=== PATIENT | female | born 1990 | race Caucasian/White ===

== ENCOUNTER 2017-01-25 09:05 | Emergency (ER) | payer BC, MEDICAID ==
[2017-01-25] MEDS ORDERED: Ibuprofen TAB* 600 MG PO ONE (09:55)
[2017-01-25] MEDS ORDERED: Acetaminophen TAB* 325 MG PO ONE (09:55)
--- NOTE | 2017-01-25 09:58 | ED ---
Influenza-Like Illness - HPI Summary HPI Summary: fever, myalgias and cough since yesterday. - History of Current Complaint Chief Complaint: UCRespiratory Time Seen by Provider: 01/25/17 09:49 Hx Obtained From: Patient Onset/Duration: Gradual Onset Severity: Moderate Associated Signs & Symptoms: Fever, Myalgia, Cough, Nasal Congestion Related Hx: Smoking Exposure - Allergy/Home Medications Allergies/Adverse Reactions: Allergies Allergy/AdvReac Type Severity Reaction Status Date / Time No Known Allergies Allergy Verified 01/25/17 09:24 Home Medications: Home Medications Implamon Bc Inplant 01/25/17 [History] PMH/Surg Hx/FS Hx/Imm Hx Previously Healthy: Yes Cardiovascular History: Denies: Hx Aneurysm - Surgical History Surgery Procedure, Year, and Place: DENTAL EXTRACTIONS Infectious Disease History: No Infectious Disease History: Denies: Traveled Outside the in Last 30 Days - Social History Alcohol Use: None Substance Use Type: Reports: None Smoking Status (MU): Light Every Day Tobacco Smoker Type: Cigarettes Amount Used/How Often: 1/2 PPD Have You Smoked in the Last Year: Yes Review of Systems All Other Systems Reviewed And Are Negative: Yes Physical Exam Triage Information Reviewed: Yes Vital Signs On Initial Exam: Initial Vitals Temp Pulse Resp BP Pulse Ox 99.2 F 96 18 108/65 97 01/25/17 09:25 01/25/17 09:25 01/25/17 09:25 01/25/17 09:25 01/25/17 09:25 Vital Signs Reviewed: Yes Appearance: Positive: Well-Nourished, Ill-Appearing - appears mildly ill and has obvious malaise without lethargy. Skin: Positive: Warm, Dry Head/Face: Positive: Normal Head/Face Inspection Eyes: Positive: Normal, EOMI, SANDIE, Conjunctiva Clear. Negative: Conjunctiva Inflammed ENT: Positive: Normal ENT inspection, Hearing grossly normal, Pharynx normal, Nasal congestion, TMs normal. Negative: Pharyngeal erythema, TM bulging, TM dull, TM red, Tonsillar swelling, Tonsillar exudate, Trismus, Muffled/hoarse voice Neck: Positive: Supple, Nontender, No Lymphadenopathy. Negative: Nuchal Rigidity Respiratory/Lung Sounds: Positive: Breath Sounds Present, Decreased Breath Sounds, Wheezes - greyson and diffuse. good air movement throughout.. Negative: Rales, Rhonchi, Subcutaneous Emphysema, Stridor, Tracheal Deviation, Unable to speak in full sentences, Fatigue Cardiovascular: Positive: Normal, RRR Abdomen Description: Positive: Nontender, No Organomegaly, Soft Musculoskeletal: Positive: Normal Neurological: Positive: Normal. Negative: Sensory/Motor Intact, Alert, Oriented to Person Place, Time, CN Intact II-III Psychiatric: Positive: Normal AVPU Assessment: Alert Diagnostics - Vital Signs Vital Signs Temp Pulse Resp BP Pulse Ox 01/25/17 09:25 99.2 F 96 18 108/65 97 - Laboratory Lab Statement: Any lab studies that have been ordered have been reviewed, and results considered in the medical decision making process. Flu Symptom Course/Dx - Course Assessment/Plan: cough, wheezing, fever since yesterday. THis is c/w acute bronchitis. influenza negative. she will return for any worsening. - Diagnoses Differential Diagnosis/HQI/PQRI: Positive: Bronchitis, Broncholiolitis, Influenza, Pneumonia, RSV, Upper Respiratory Infection Provider Diagnoses: Acute bronchitis Discharge - Discharge Plan Condition: Guarded Disposition: HOME Prescriptions: Albuterol HFA INHALER* [Ventolin HFA Inhaler*] 1 puff INH Q4H PRN #1 mdi PRN Reason: Cough Azithromyxin RONALD (NF) [Z-Ronald (Zithromax) 250 mg tabs #6] 2 tab PO .TODAY, THEN 1 DAILY #6 tab Spacer/Aerosol-Holding Chamber [Aerochamber Mini Aerosol] 1 mis INH Q4HR PRN #1 mis PRN Reason: Cough Patient Education Materials: Fever in Adults (ED) Forms: *Work Release Referrals: Kelly Jacobson MD [Primary Care Provider] - If Needed Additional Instructions: return here or to the emergency dept for any signs of worsening.
[2017-01-25 10:28] VITALS: BP 108/65
== END 2017-01-25 10:42 | disposition home or self-care (01) ==
LOC: UCCORT 09:05
DX: J20.9 Acute bronchitis, unspecified (principal); F17.210 Nicotine dependence, cigarettes, uncomplicated
CPT/HCPCS: 87502; 99212; A9270-GY; G0463

== ENCOUNTER 2017-02-22 17:04 | Emergency (ER) | payer BC, MEDICAID ==
[2017-02-22 17:36] VITALS: BP 104/64
--- NOTE | 2017-02-22 17:46 | UC ---
Lower Extremity/Ankle HPI - HPI Summary HPI Summary: The patient comes in today for: 1. Left foot pain: Onset: Last night. Palliative/provocative: Walking makes it worse. She worked today on it. Quality: Sharp and aching. Region: Top of the left foot. Severity: 6/10 Time: Constant. Associated symptoms: Event: She tripped and fell "right on a computer." The top of her foot hit the computer. Previous treatment: None. 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 Endocrine History Of: Denies: Diabetes, Thyroid Disease, Hyperthyroidism, Hypothyroidism, Dyslipidemia Cardiovascular History Of: Denies: Cardiac Disorders, Hypertension, Pacemaker/ICD, Myocardial Infarction , Congestive Heart Failure, Atrial Fibrillation, Deep Vein Thrombosis, Bleeding Disorders Respiratory History Of: Reports: Asthma Denies: COPD, Bronchitis, Pneumonia, Pulmonary Embolism GI/ History Of: Denies: Gastroesophageal Reflux, Ulcer, Gastrointestinal Bleed, Gall Bladder Disease, Kidney Stones, Diverticulitis, Renal Disease, Urosepsis Neurological History Of: Denies: TIA, CVA, Dementia, Seizures, Migraine Psychological History Of: Denies: Anxiety, Depression, Bipolar Disorder, Schizophrenia, Post Traumatic Stress Disorder Cancer History Of: Denies: Lung Cancer, Colorectal Cancer, Breast Cancer, Prostate Cancer, Cervical Cancer Other History Of: Negative For: HIV, Hepatitis B, Hepatitis C, Anticoagulant Therapy - Surgical History Surgical History: None Surgery Procedure, Year, and Place: DENTAL EXTRACTIONS - Family History Known Family History: Positive: Cardiac Disease, Hypertension - Social History Occupation: Employed Full-time Alcohol Use: None Substance Use Type: None Smoking Status (MU): Heavy Every Day Tobacco Smoker Type: Cigarettes Amount Used/How Often: 1/2 PPD Have You Smoked in the Last Year: Yes When Did the Patient Quit Smoking/Using Tobacco: quit 2 months ago 06/2015 Household Exposure Type: Cigarettes - Immunization History Most Recent Influenza Vaccination: NONE Most Recent Tetanus Shot: UTD Review of Systems Constitutional: Negative Skin: Negative Eyes: Negative ENT: Negative Respiratory: Negative Cardiovascular: Negative Gastrointestinal: Negative Genitourinary: Negative Musculoskeletal: Arthralgia All Other Systems Reviewed And Are Negative: Yes Physical Exam Triage Information Reviewed: Yes Appearance: Well-Appearing, No Pain Distress - at rest., Well-Nourished Vital Signs: Initial Vital Signs Temp 98.7 F 02/22/17 17:29 Pulse 72 02/22/17 17:29 Resp 16 02/22/17 17:29 BP 104/64 02/22/17 17:29 Pulse Ox 98 02/22/17 17:29 Vital Signs Reviewed: Yes Eyes: Positive: Conjunctiva Clear. Negative: Discharge ENT: Positive: Hearing grossly normal. Negative: Pharyngeal erythema, Nasal congestion, Nasal drainage, TM bulging, TM dull, TM red, Tonsillar swelling, Tonsillar exudate Dental: Negative: Gross Decay/Caries @, Dental Fracture @ Neck: Positive: Supple, Nontender, No Lymphadenopathy. Negative: Nuchal Rigidity Respiratory: Positive: Lungs clear, No respiratory distress, No accessory muscle use. Negative: Crackles, Wheezing Cardiovascular: Positive: RRR, No Murmur Abdomen Description: Positive: Nontender, No Organomegaly, Soft. Negative: Distended, Guarding Musculoskeletal: Positive: Other: - Left foot: There is no ecchymosis or edema or redness. There is no distortion of anatomy. Light touch is associated with her grimacing which is not consistent with the physical finding. Kuo test was normal and there was no depression of the Achilles tendon with slight plantar flexion. Neurological: Positive: Alert, Muscle Tone Normal Psychological: Positive: Normal Response To Family, Age Appropriate Behavior, Consolable Skin: Negative: rashes, breakdown Diagnostics - Radiology No standard instances Xray Interpretation: No Acute Changes Lower Extremity Course/Dx - Course Course Of Treatment: Despite the pain being bad enough with light touch that she grimaced with it, she declined any pain medicaton at least when initially asked. - Differential Dx/Diagnosis Differential Diagnosis/HQI/PQRI: Cellulitis, Gout, Sprain Provider Diagnoses: Contusion of the dorsum of the left foot. Tendonitis of the extensor tendons (of the toes) of the left foot Discharge - Discharge Plan Condition: Stable Disposition: HOME Patient Education Materials: Tenosynovitis (ED), Contusion in Adults (ED), RICE Therapy (ED) Forms: *Work Release Referrals: Kelly Jacobson MD [Primary Care Provider] - 1 Week (Please see your primary care provider in about one to two weeks to see how well you are doing. If you get worse, please be seen sooner.) Additional Instructions: Rest, apply ice (for the first 2 days) and elevation as much as you can will help with healing.
--- NOTE | 2017-02-22 18:13 | RAD ---
INDICATION: Pain overlying the left foot metatarsals after striking foot on heart object the previous night COMPARISON: None. TECHNIQUE: 3 views of the left foot were obtained. FINDINGS: The adequately corticated bones are properly aligned. Joint spaces appear maintained. No fracture, dislocation or focal bony abnormality is seen. IMPRESSION: Normal radiograph of the left foot. If the patient's symptoms persist, follow-up imaging is recommended.
== END 2017-02-22 18:20 | disposition home or self-care (01) ==
LOC: UCCORT 17:04
DX: S90.32XA Contusion of left foot, initial encounter (principal); W01.198A Fall on same level from slipping, tripping and stumbling with subsequent striking against other object, initial encounter; Y93.9 Activity, unspecified; Y92.9 Unspecified place or not applicable; M77.50 Other enthesopathy of unspecified foot and ankle; J45.909 Unspecified asthma, uncomplicated; Z87.891 Personal history of nicotine dependence
CPT/HCPCS: 99212; G0463

== ENCOUNTER 2017-03-11 21:11 | Emergency (ER) | payer BC, MEDICAID ==
[2017-03-11 21:19] VITALS: BP 116/69
--- NOTE | 2017-03-11 21:28 | UC ---
Lower Extremity/Ankle HPI - HPI Summary HPI Summary: complaint of right foot sprain yesterday a table fell out of car and fell on her foot went to [facility]- had an x-ray and dx with geovani/ contusion- told to take motrin for pain took some tylenol at 11:00 AM with not much relief today when she woke up her foot is painful and swollen can't ambulate fully limping d/t pain any movement or pressure feels painful - History of Current Complaint Chief Complaint: UCLowerExtremity Stated Complaint: RT FOOT INJURY Hx Obtained From: Patient Hx Last Menstrual Period: 02/28/17 - Allergies/Home Medications Allergies/Adverse Reactions: Allergies Allergy/AdvReac Type Severity Reaction Status Date / Time No Known Allergies Allergy Verified 03/11/17 21:19 Home Medications: Home Medications Acetaminophen TAB* [Tylenol TAB*] 500 mg PO Q4H PRN 03/11/17 [History Confirmed 03/11/17] PMH/Surg Hx/FS Hx/Imm Hx Previously Healthy: Yes Other History Of: Negative For: HIV, Hepatitis B, Hepatitis C, Anticoagulant Therapy - Surgical History Surgical History: None Surgery Procedure, Year, and Place: DENTAL EXTRACTIONS - Family History Known Family History: Positive: Cardiac Disease, Hypertension Negative: Diabetes - Social History Occupation: Employed Full-time Lives: With Family Alcohol Use: None Substance Use Type: None Smoking Status (MU): Heavy Every Day Tobacco Smoker Type: Cigarettes Amount Used/How Often: 1/2 PPD Have You Smoked in the Last Year: Yes When Did the Patient Quit Smoking/Using Tobacco: quit 2 months ago 06/2015 Household Exposure Type: Cigarettes Cessation Counseling: Patient Advised to Stop - Immunization History Most Recent Influenza Vaccination: NONE Most Recent Tetanus Shot: UTD Review of Systems Constitutional: Negative Skin: Negative Eyes: Negative ENT: Negative Respiratory: Negative Cardiovascular: Negative Gastrointestinal: Negative Genitourinary: Negative Motor: Negative Neurovascular: Negative Musculoskeletal: Other: - right foot pain Neurological: Negative Psychological: Negative All Other Systems Reviewed And Are Negative: Yes Physical Exam Triage Information Reviewed: Yes Appearance: No Pain Distress, Well-Nourished, Pain Distress Vital Signs: Initial Vital Signs Temp 99.1 F 03/11/17 21:16 Pulse 81 03/11/17 21:16 Resp 18 03/11/17 21:16 BP 116/69 03/11/17 21:16 Pulse Ox 100 06/10/17 21:16 Vital Signs Reviewed: Yes Eyes: Positive: Conjunctiva Clear ENT: Positive: Pharynx normal, TMs normal Neck: Positive: Supple Respiratory: Positive: Lungs clear, Normal breath sounds, No respiratory distress, No accessory muscle use Cardiovascular: Positive: RRR, No Murmur, Pulses Normal Abdomen Description: Positive: Nontender, Soft Bowel Sounds: Positive: Present Musculoskeletal: Positive: Other: - RLE-No bony deformities, ecchymosis and tenderness accross the top and lateral side of foot, no edema or tendernss in ankle. Full ROM dorsi/plantar flexion, inversion & eversion. Tarpley test negative. Neurological: Positive: Alert Psychological Exam: Normal Skin Exam: Normal Lower Extremity Course/Dx - Course Course Of Treatment: exam completed- [facility] notes reviewed x-ray negative for fracture. will treat right foot contusion with tramadol for 2 days, then switch to ibuprofen, crutches, out of work for 4 days if no improvement referral to orthopedics provided. - Differential Dx/Diagnosis Differential Diagnosis/HQI/PQRI: Contusion, Sprain, Strain Provider Diagnoses: right foot contusion Discharge - Discharge Plan Condition: Stable Disposition: HOME Prescriptions: traMADol TAB* [Ultram*] 50 mg PO Q6HR PRN #8 tab MDD 4 PRN Reason: Pain Patient Education Materials: Foot Contusion (ED), RICE Therapy (ED) Forms: *Work Release Referrals: Kelly Jacobson MD [Primary Care Provider] - David Lezama MD [Medical Doctor] - Additional Instructions: You have a contusion on your right foot They will evaluate and determine your treatment. Use crutches as needed and apply ice to foot twice a day, rest nad elevate your foot If your symptoms do not continually improve please call residential support specialist for an appointment. Take acetaminophen or ibuprofen to control pain and reduce inflammation. Please review your discharge instructions. If your symptoms worsen call residential support specialist or return to urgent care.
[2017-03-11] MEDS ORDERED: HYDROcodone/ACETAMIN 5-325 MG* 1 TAB PO ONE (21:39)
== END 2017-03-11 21:53 | disposition home or self-care (01) ==
LOC: UCCORT 21:11
DX: S93.601A Unspecified sprain of right foot, initial encounter (principal); W20.8XXA Other cause of strike by thrown, projected or falling object, initial encounter; Y92.9 Unspecified place or not applicable; Z87.891 Personal history of nicotine dependence
CPT/HCPCS: 99213; G0463

== ENCOUNTER 2017-06-22 18:55 | Emergency (ER) | payer BC, MEDICAID | END 2017-06-22 19:12 | disposition left against medical advice (07) | LOC: UCCORT 18:55 | DX: S79.911A Unspecified injury of right hip, initial encounter (principal); Z53.21 Procedure and treatment not carried out due to patient leaving prior to being seen by health care provider; V89.2XXA Person injured in unspecified motor-vehicle accident, traffic, initial encounter; Y92.9 Unspecified place or not applicable ==

== ENCOUNTER 2017-08-27 12:10 | Emergency (ER) | payer BC, MEDICAID ==
[2017-08-27 15:27] VITALS: BP 117/54
[2017-08-27] MEDS ORDERED: Ibuprofen TAB* 600 MG PO ONE (15:36)
--- NOTE | 2017-08-27 15:40 | UC ---
Respiratory Complaint HPI - HPI Summary HPI Summary: sinus congestion, sore throat, ear pain and dyspnea for the past week. hx of smoking - History of Current Complaint Chief Complaint: UCRespiratory Stated Complaint: ST Time Seen by Provider: 08/27/17 15:31 Hx Obtained From: Patient Hx Last Menstrual Period: Implanon ?: No Onset/Duration: Sudden Onset, Lasting Days Severity Initially: Mild Severity Currently: Severe Associated Signs And Symptoms: Positive: Dyspnea, Fever, Chills, Nasal Congestion, Sinus Discomfort - Allergies/Home Medications Allergies/Adverse Reactions: Allergies Allergy/AdvReac Type Severity Reaction Status Date / Time No Known Allergies Allergy Verified 08/27/17 15:22 PMH/Surg Hx/FS Hx/Imm Hx Previously Healthy: Yes Other History Of: Negative For: HIV, Hepatitis B, Hepatitis C, Anticoagulant Therapy - Surgical History Surgical History: Yes Surgery Procedure, Year, and Place: DENTAL EXTRACTIONS - Family History Known Family History: Positive: Cardiac Disease, Hypertension Negative: Diabetes - Social History Alcohol Use: None Substance Use Type: None Smoking Status (MU): Heavy Every Day Tobacco Smoker Type: Cigarettes Amount Used/How Often: 1/2 PPD Have You Smoked in the Last Year: Yes When Did the Patient Quit Smoking/Using Tobacco: quit 2 months ago 06/2015 Household Exposure Type: Cigarettes - Immunization History Most Recent Influenza Vaccination: no Most Recent Tetanus Shot: UTD Review of Systems Constitutional: Fever, Chills, Fatigue Skin: Negative Eyes: Negative ENT: Sore Throat, Ear Ache, Nasal Discharge Respiratory: Shortness Of Breath, Cough Cardiovascular: Negative Gastrointestinal: Negative Genitourinary: Negative Motor: Negative Neurovascular: Negative Musculoskeletal: Arthralgia, Myalgia Neurological: Headache Psychological: Negative Is Patient Immunocompromised?: No All Other Systems Reviewed And Are Negative: Yes Physical Exam Triage Information Reviewed: Yes Appearance: Well-Nourished, Ill-Appearing, Pain Distress Vital Signs: Initial Vital Signs Temp 98.5 F 08/27/17 15:23 Pulse 90 08/27/17 15:23 Resp 16 08/27/17 15:23 BP 117/54 08/27/17 15:23 Pulse Ox 100 08/27/17 15:23 Vital Signs Reviewed: Yes Eye Exam: Normal ENT: Positive: Pharyngeal erythema, Nasal congestion, Nasal drainage, TM red Dental Exam: Normal Neck exam: Normal Neck: Positive: Supple, Nontender, No Lymphadenopathy Respiratory Exam: Normal Respiratory: Positive: Chest non-tender, No respiratory distress, Decreased breath sounds, Wheezing, Inspiration Cardiovascular Exam: Normal Cardiovascular: Positive: RRR, No Murmur, Pulses Normal Abdominal Exam: Normal Abdomen Description: Positive: Nontender, No Organomegaly, Soft Bowel Sounds: Positive: Present Musculoskeletal Exam: Normal Musculoskeletal: Positive: Strength Intact, ROM Intact, No Edema Neurological Exam: Normal Neurological: Positive: Alert Psychological Exam: Normal UC Diagnostic Evaluation - Laboratory O2 Sat by Pulse Oximetry: 100 Respiratory Course/Dx - Course Course Of Treatment: hx obtained, exam performed ,meds reviewed chest ray obtained and is neg, treated for bronchitis - Differential Dx/Diagnosis Differential Diagnosis/HQI/PQRI: Asthma, Bronchitis, Influenza, Laryngitis, Lower Resp Infection, Sinusitis Provider Diagnoses: bronchitis Discharge - Discharge Plan Condition: Stable Disposition: HOME Patient Education Materials: Acute Bronchitis (ED) Referrals: No Primary Care Phys,NOPCP [Primary Care Provider] -
--- NOTE | 2017-08-27 16:09 | RAD ---
INDICATION: Shortness of breath and dyspnea. COMPARISON: There are no prior studies available for comparison. TECHNIQUE: Dual-energy PA and lateral views of the chest were obtained. FINDINGS: The heart is within normal limits in size. Mediastinal and hilar contours appear within normal limits. There is mild bilateral apical pleural pleural thickening. The lungs are clear. No pleural effusion is seen. IMPRESSION: NO EVIDENCE FOR ACTIVE CARDIOPULMONARY DISEASE.
[2017-08-27] MEDS ORDERED: Amoxicillin PO (*) 500 MG CAP PO ONE (16:57)
== END 2017-08-27 17:01 | disposition home or self-care (01) ==
LOC: UCCORT 12:10
DX: J40 Bronchitis, not specified as acute or chronic (principal); F17.210 Nicotine dependence, cigarettes, uncomplicated
CPT/HCPCS: 71020; 99212; A9270-GY; G0463

== ENCOUNTER 2017-10-23 19:57 | Emergency (ER) | payer BC, MEDICAID ==
[2017-10-23 21:12] VITALS: BP 120/56
[2017-10-23] MEDS ORDERED: Ibuprofen TAB* 400 MG PO ONE (21:20)
--- NOTE | 2017-10-23 21:20 | UC ---
Elbow Pain - HPI Summary HPI Summary: Pt with pain medial aspect right elbow. Pt slipped on ice this am and fell. No strike head. No loc. No neck or back pain. Pain worse with movement. no parethsia. no weakness, no deformity. No ice applied. APAP this am. RHD no other injuries Pt's meds reviewed this visit - History of Current Complaint Chief Complaint: UCGeneralIllness Stated Complaint: RIGHT ELBOW INJURY Time Seen by Provider: 10/23/17 21:19 Hx Obtained From: Patient Hx Last Menstrual Period: Implanon IUD Mechanism of Injury: slip on ice Onset/Duration: Hours Severity Initially: Mild Severity Currently: Moderate Location Of Pain: Is Discrete @ - right medial elbow Aggravating Factor(s): Movement Alleviating Factor(s): Rest - Allergies/Home Medications Allergies/Adverse Reactions: Allergies Allergy/AdvReac Type Severity Reaction Status Date / Time No Known Allergies Allergy Verified 10/23/17 21:06 PMH/Surg Hx/FS Hx/Imm Hx Previously Healthy: Yes Other History Of: Negative For: HIV, Hepatitis B, Hepatitis C, Anticoagulant Therapy - Surgical History Surgical History: Yes Surgery Procedure, Year, and Place: DENTAL EXTRACTIONS - Family History Known Family History: Positive: Cardiac Disease, Hypertension Negative: Diabetes - Social History Occupation: Employed Part-time Lives: With Family Alcohol Use: None Substance Use Type: None Smoking Status (MU): Heavy Every Day Tobacco Smoker Type: Cigarettes Amount Used/How Often: 1/2 PPD Have You Smoked in the Last Year: Yes When Did the Patient Quit Smoking/Using Tobacco: quit 2 months ago 06/2015 Household Exposure Type: Cigarettes - Immunization History Most Recent Influenza Vaccination: no Most Recent Tetanus Shot: UTD Review of Systems Constitutional: Negative Skin: Bruising - medial right elbow Cardiovascular: Negative Motor: Other - right medial elbow Musculoskeletal: Decreased ROM Neurological: Negative All Other Systems Reviewed And Are Negative: Yes Physical Exam Triage Information Reviewed: Yes Appearance: Well-Appearing, No Pain Distress, Well-Nourished Vital Signs: Initial Vital Signs Temp 99.4 F 10/23/17 21:07 Pulse 80 10/23/17 21:07 Resp 16 10/23/17 21:07 BP 120/56 10/23/17 21:07 Pulse Ox 98 10/23/17 21:07 Vital Signs Reviewed: Yes Eye Exam: Normal Eyes: Positive: Conjunctiva Clear ENT Exam: Normal ENT: Positive: Normal ENT inspection, Hearing grossly normal, Pharynx normal, TMs normal Dental Exam: Other - no dentitiion, no blood Neck exam: Normal Neck: Positive: 1 Respiratory Exam: Normal Cardiovascular Exam: Normal Cardiovascular: Positive: RRR, No Murmur, Pulses Normal, Other: - 2+ radial, 2+ ulnar Abdominal Exam: Normal Abdomen Description: Positive: Nontender, No Organomegaly, Soft Bowel Sounds: Positive: Present Musculoskeletal Exam: Normal Musculoskeletal: Positive: Other: - no pain c/t/l/s + abduct, extend right shoulder holds in slight flexion at elbow + full flexion, extension with disomcomfort medial elbow no crepitus + flex/ext wrist 5/5 grasp Neurological Exam: Normal Neurological: Positive: Other: - + thumb up, a ok finger spread, finger cross + gross sensation throughout Psychological Exam: Normal Skin: Positive: Other - small ecchymosis medial epicondyl skin intact Diagnostics - Radiology No standard instances Radiology Interpretation Completed By: Radiologist - no fx, no dislocation Re-Evaluation - Re-Evaluation Second Eval Comment: reviewed imaging with pt. sling for comfort - demonstrate remove for small circles at shoulder and bend.straighten elbow. PCP f.u. ice. motrin/ apap Elbow Pain Course/Dx - Course Course Of Treatment: pt with right elbow pain s/p slip and fall this am. pain medial aspect right elbow. ice. analgesia. image - Differential Dx/Diagnosis Provider Diagnoses: right elbow contusion Discharge - Discharge Plan Condition: Stable Disposition: HOME Patient Education Materials: Contusion in Adults (ED) Referrals: No Primary Care Phys,NOPCP [Primary Care Provider] - Additional Instructions: - Okay to alternate ibuprofen (Advil, Motrin) and Tylenol every 3 hours for pain. TAke with food. DO NOT take for more than 4-5 days - Apply ice (Wrapped in a towel) 20 minutes at a time, 2-3 times a day - Take your arm out of sling, 3-4times a day - slow bend/straighten your elbow and make small circles with your shoulder - Contact your doctor to schedule a follow-up appointment. Contact your doctor or return with questions or concerns
--- NOTE | 2017-10-23 21:44 | RAD ---
Indication: Fall, right forearm injury. 2 views of the right forearm demonstrates no fracture. No other bone or joint abnormality is noted. IMPRESSION: No fracture of the right forearm is noted.
--- NOTE | 2017-10-23 21:45 | RAD ---
Indication: Right elbow injury. 4 views of the right elbow demonstrates no fracture. No other bone or joint abnormality is noted. IMPRESSION: No fracture of the right elbow is noted.
== END 2017-10-23 22:07 | disposition home or self-care (01) ==
LOC: UCCORT 19:57
DX: S50.01XA Contusion of right elbow, initial encounter (principal); W00.0XXA Fall on same level due to ice and snow, initial encounter; Y93.9 Activity, unspecified; Y92.9 Unspecified place or not applicable; Z97.5 Presence of (intrauterine) contraceptive device; Z87.891 Personal history of nicotine dependence
CPT/HCPCS: 99213; A9270-GY; G0463

== ENCOUNTER 2017-10-31 10:18 | Emergency (ER) | payer SELFPAY ==
[2017-10-31 12:18] VITALS: BP 133/82
--- NOTE | 2017-10-31 12:45 | UC ---
Upper Extremity HPI - HPI Summary HPI Summary: right elbow pain x 8 days s/p fall on her right elbow 8 days ago had xray done 8 days ago, no fracture seen cont. to have pain - History of Current Complaint Chief Complaint: UCUpperExtremity Stated Complaint: F/U RIGHT ARM PAIN Time Seen by Provider: 10/31/17 12:20 Hx Obtained From: Patient Hx Last Menstrual Period: 4 mos. Onset/Duration: Sudden Onset, Lasting Days - 8, Still Present Severity Initially: Moderate Severity Currently: Moderate Pain Intensity: 7 Location Of Pain: Is Discrete @ - right elbow Character: Aching Aggravating Factor(s): Movement, Lifting, Flexion, Extension Alleviating Factor(s): Nothing Associated Signs And Symptoms: Positive: Swelling, Bruising - right elbow - Allergies/Home Medications Allergies/Adverse Reactions: Allergies Allergy/AdvReac Type Severity Reaction Status Date / Time No Known Allergies Allergy Verified 10/31/17 12:07 Home Medications: Home Medications Acetaminophen [Acetaminophen Extra Stren] 1,000 mg PO Q4H PRN 10/31/17 [History Confirmed 10/31/17] PMH/Surg Hx/FS Hx/Imm Hx Previously Healthy: Yes Other History Of: Negative For: HIV, Hepatitis B, Hepatitis C, Anticoagulant Therapy - Surgical History Surgical History: Yes Surgery Procedure, Year, and Place: DENTAL EXTRACTIONS - Family History Known Family History: Positive: Cardiac Disease, Hypertension Negative: Diabetes - Social History Alcohol Use: None Substance Use Type: None Smoking Status (MU): Light Every Day Tobacco Smoker Type: Cigarettes Amount Used/How Often: 1/2 PPD Have You Smoked in the Last Year: Yes When Did the Patient Quit Smoking/Using Tobacco: quit 2 months ago 06/2015 Household Exposure Type: Cigarettes - Immunization History Most Recent Influenza Vaccination: no Most Recent Tetanus Shot: UTD Review of Systems Constitutional: Negative Skin: Negative Eyes: Negative ENT: Negative Respiratory: Negative Is Patient Immunocompromised?: No All Other Systems Reviewed And Are Negative: Yes Physical Exam Triage Information Reviewed: Yes Appearance: Well-Appearing, No Pain Distress, Well-Nourished Vital Signs: Initial Vital Signs Temp 99.1 F 10/31/17 12:11 Pulse 96 10/31/17 12:11 Resp 24 10/31/17 12:11 BP 133/82 10/31/17 12:11 Pulse Ox 100 10/31/17 12:11 Eye Exam: Normal Eyes: Positive: Conjunctiva Clear ENT: Positive: Normal ENT inspection, Hearing grossly normal, Pharynx normal Neck: Positive: Supple, Nontender, No Lymphadenopathy Respiratory: Positive: Chest non-tender, Lungs clear, Normal breath sounds Cardiovascular: Positive: RRR, No Murmur, Pulses Normal Musculoskeletal: Positive: Other: - right elbow : no swelling, + ecchymosis, tenderness, pain with flexion Diagnostics - Laboratory Diagnostic Studies Completed/Ordered: right elbow xray : no fracture Upper Extremity Course/Dx - Differential Dx/Diagnosis Provider Diagnoses: contusion right elbow Discharge - Discharge Plan Condition: Stable Disposition: HOME Patient Education Materials: Contusion in Adults (ED) Referrals: No Primary Care Phys,NOPCP [Primary Care Provider] - If Needed
--- NOTE | 2017-10-31 12:59 | RAD ---
HISTORY: Subacute trauma to right elbow COMPARISONS: October 23, 2017 VIEWS: 4, Frontal, lateral, and oblique views of the right elbow FINDINGS: BONE DENSITY: Normal. BONES: There is no displaced fracture. JOINTS: There is no arthropathy. There is no posterior supracondylar fat pad to suggest a joint effusion. ALIGNMENT: There is no dislocation. SOFT TISSUES: Unremarkable. OTHER FINDINGS: None. IMPRESSION: NO ACUTE OSSEOUS INJURY. IF SYMPTOMS PERSIST, RECOMMEND REPEAT IMAGING.
== END 2017-10-31 12:45 | disposition home or self-care (01) ==
LOC: UCCORT 10:18
DX: S50.01XA Contusion of right elbow, initial encounter (principal); Z87.891 Personal history of nicotine dependence; W19.XXXA Unspecified fall, initial encounter; Y92.9 Unspecified place or not applicable
CPT/HCPCS: 99211; G0463

== ENCOUNTER 2017-11-28 19:55 | Emergency (ER) | payer SELFPAY ==
--- NOTE | 2017-11-28 21:13 | ED ---
Upper Extremity Pain - HPI Summary HPI Summary: 26 yr old female with complaint of right pinky and hand pain. She states she caught her hand on a beam 5 days ago. She has been having pain, mostly in the 5th digit. No other complaints. - History of Current Complaint Stated Complaint: INJURY RIGHT PINKY FINGER Time Seen by Provider: 11/28/17 20:51 Hx Last Menstrual Period: 4 mos. - Allergies/Home Medications Allergies/Adverse Reactions: Allergies Allergy/AdvReac Type Severity Reaction Status Date / Time No Known Allergies Allergy Verified 11/28/17 21:15 PMH/Surg Hx/FS Hx/Imm Hx Endocrine/Hematology History: Denies: Hx Anticoagulant Therapy, Hx Diabetes, Hx Thyroid Disease Cardiovascular History: Denies: Hx Aneurysm, Hx Congestive Heart Failure, Hx Deep Vein Thrombosis, Hx Hypertension, Hx Myocardial Infarction, Hx Pacemaker/ICD Respiratory History: Reports: Hx Asthma Denies: Hx Chronic Obstructive Pulmonary Disease (COPD), Hx Lung Cancer, Hx Pneumonia, Hx Pulmonary Embolism GI History: Denies: Hx Gall Bladder Disease, Hx Gastrointestinal Bleed, Hx Ulcer, Hx Urosepsis History: Denies: Hx Kidney Stones, Hx Renal Disease Sensory History: Denies: Hx Hearing Aid Neurological History: Denies: Hx Dementia, Hx Migraine, Hx Seizures, Hx Transient Ischemic Attacks (TIA) Psychiatric History: Reports: Hx Panic Disorder Denies: Hx Anxiety, Hx Depression, Hx Schizophrenia, Hx Bipolar Disorder - Surgical History Surgery Procedure, Year, and Place: DENTAL EXTRACTIONS Infectious Disease History: Denies: Traveled Outside the [place] in Last 30 Days - Family History Known Family History: Positive: Cardiac Disease, Hypertension Negative: Diabetes - Social History Alcohol Use: None Substance Use Type: Reports: None Smoking Status (MU): Light Every Day Tobacco Smoker Type: Cigarettes Amount Used/How Often: 1/2 PPD Have You Smoked in the Last Year: Yes Review of Systems Constitutional: Negative Positive: Other - right hand pain All Other Systems Reviewed And Are Negative: Yes Physical Exam Triage Information Reviewed: Yes Vital Signs Reviewed: Yes Appearance: Positive: Well-Appearing, No Pain Distress Eyes: Positive: EOMI ENT: Positive: Pharynx normal, TMs normal Neck: Positive: Supple, Nontender Respiratory/Lung Sounds: Positive: Clear to Auscultation, Breath Sounds Present Cardiovascular: Positive: RRR. Negative: Murmur Abdomen Description: Positive: Nontender, No Organomegaly Musculoskeletal: Positive: Strength/ROM Intact, Other - right hand without gross deformity. Neurological: Positive: Sensory/Motor Intact, Alert, Oriented to Person Place, Time, CN Intact II-III Psychiatric: Positive: Normal - [place] Coma Scale Best Eye Response: 4 - Spontaneous Best Motor Response: 6 - Obeys Commands Best Verbal Response: 5 - Oriented Coma Scale Total: 15 Diagnostics - Laboratory Lab Statement: Any lab studies that have been ordered have been reviewed, and results considered in the medical decision making process. - Radiology right hand Xray Interpretation: No Acute Changes Radiology Interpretation Completed By: Radiologist Course/Dx - Course Course Of Treatment: 26 yr old with contusion to the hand. Xray OK per rad. DC home. - Diagnoses Provider Diagnoses: Contusion of hand, right Discharge - Discharge Plan Condition: Good Disposition: HOME Prescriptions: Ibuprofen TAB* [Motrin TAB* 600 MG] 600 mg PO Q6H PRN #14 tab PRN Reason: Pain Patient Education Materials: Contusion in Adults (ED) Referrals: No Primary Care Phys,NOPCP [Primary Care Provider] - [facility] [place] [facility] [Outside]
[2017-11-28 21:15] VITALS: BP 116/63
--- NOTE | 2017-11-28 21:23 | RAD ---
INDICATION: Pain over the RIGHT fifth finger and metacarpal post fall. COMPARISON: June 30, 2010 TECHNIQUE: AP, lateral, and oblique views RIGHT hand. REPORT: Negative for fracture or malalignment. Unremarkable soft tissue contours. IMPRESSION: Negative exam.
== END 2017-11-28 21:52 | disposition home or self-care (01) ==
LOC: UCCORT 19:55
DX: S60.221A Contusion of right hand, initial encounter (principal); W22.8XXA Striking against or struck by other objects, initial encounter; Y93.9 Activity, unspecified; Y92.9 Unspecified place or not applicable; F17.210 Nicotine dependence, cigarettes, uncomplicated
CPT/HCPCS: 99212; G0463

== ENCOUNTER 2017-12-26 15:56 | Emergency (ER) | payer SELFPAY ==
[2017-12-26 18:13] VITALS: BP 118/64
--- NOTE | 2017-12-26 18:27 | UC ---
Complaint Female HPI - HPI Summary HPI Summary: Patient here accompanied by boyfriend. Onset of dysuria, hematuria, frequency and urgency about 3 hours ago. No fever, nausea or back pain. - History Of Current Complaint Chief Complaint: UCGU Stated Complaint: URINARY Time Seen by Provider: 12/26/17 18:17 Hx Obtained From: Patient Hx Last Menstrual Period: 7 mos. Onset/Duration: Sudden Onset, Lasting Hours, Still Present Timing: Constant Severity Initially: Moderate Severity Currently: Moderate Pain Intensity: 6 Pain Scale Used: 0-10 Numeric Character: Burning Aggravating Factor(s): Urination Alleviating Factor(s): Nothing Associated Signs And Symptoms: Negative: Fever, Back Pain, Vaginal Discharge, Nausea - Allergies/Home Medications Allergies/Adverse Reactions: Allergies Allergy/AdvReac Type Severity Reaction Status Date / Time No Known Allergies Allergy Verified 12/26/17 18:03 PMH/Surg Hx/FS Hx/Imm Hx Respiratory History: Asthma Other History Of: Negative For: HIV, Hepatitis B, Hepatitis C, Anticoagulant Therapy - Surgical History Surgical History: Yes Surgery Procedure, Year, and Place: DENTAL EXTRACTIONS - Family History Known Family History: Positive: Cardiac Disease, Hypertension Negative: Diabetes - Social History Alcohol Use: Rare Substance Use Type: None Smoking Status (MU): Former Smoker Type: Cigarettes Amount Used/How Often: 1/2 PPD Have You Smoked in the Last Year: Yes When Did the Patient Quit Smoking/Using Tobacco: 12/19/17 Household Exposure Type: Cigarettes - Immunization History Most Recent Influenza Vaccination: no Most Recent Tetanus Shot: UTD Review of Systems Constitutional: Negative Respiratory: Negative Cardiovascular: Negative Gastrointestinal: Abdominal Pain Genitourinary: Dysuria, Hematuria, Frequency, Urgency All Other Systems Reviewed And Are Negative: Yes Physical Exam Triage Information Reviewed: Yes Appearance: Well-Appearing, No Pain Distress, Well-Nourished Vital Signs: Initial Vital Signs Temp 99.2 F 12/26/17 18:05 Pulse 76 12/26/17 18:05 Resp 24 12/26/17 18:05 BP 118/64 12/26/17 18:05 Pulse Ox 100 12/26/17 18:05 Vital Signs Reviewed: Yes Eyes: Positive: Conjunctiva Clear ENT: Positive: Hearing grossly normal Neck: Positive: Supple Respiratory: Positive: No respiratory distress, No accessory muscle use Cardiovascular: Positive: Pulses Normal Abdomen Description: Positive: Nontender, Soft. Negative: CVA Tenderness (R), CVA Tenderness (L), Distended, Guarding Musculoskeletal: Positive: No Edema Neurological: Positive: Alert Psychological: Positive: Age Appropriate Behavior Skin: Negative: rashes Diagnostics - Laboratory Diagnostic Studies Completed/Ordered: URINE DIP SP. GR. 1.015, 2+ PROTEIN, 2+ LEUKS, 3+ BLOOD Complaint Female Dx - Differential Dx/Diagnosis Provider Diagnoses: UTI Discharge - Sign-Out/Discharge Documenting (check all that apply): Discharge - Discharge Plan Condition: Stable Disposition: HOME Prescriptions: Sulfamethox/Trimethoprim DS* [Bactrim DS 800/160 TAB*] 1 tab PO BID #10 tab Patient Education Materials: Urinary Tract Infection in Women (ED) Referrals: Non Staff,Doctor [Primary Care Provider] - Additional Instructions: SEEK FOLLOW-UP HERE OR WITH A PCP IF YOU ARE NOT IMPROVING EXPECTED. CALL THE NUMBER BELOW FOR ASSISTANCE IN ESTABLISHING WITH A PCP An additional resource available to assist in finding the appropriate physician for your health care needs is the [facility] ([facility]). You may contact them by calling [phone]. - Billing Disposition and Condition Condition: STABLE Disposition: HOME
== END 2017-12-26 18:51 | disposition home or self-care (01) ==
LOC: UCCORT 15:56
DX: N39.0 Urinary tract infection, site not specified (principal); Z87.891 Personal history of nicotine dependence
CPT/HCPCS: 81003; 87086; 99212; G0463

== ENCOUNTER 2019-01-18 14:35 | Emergency (ER) | payer BC, MEDICAID ==
[2019-01-18 15:05] VITALS: BP 107/54
--- NOTE | 2019-01-18 15:17 | UC ---
Hand/Wrist HPI - HPI Summary HPI Summary: Pt presents with c/o right hand and wrist pain s/p trip while walking up stairs and falling on right wrist- FOOSH - History Of Current Complaint Chief Complaint: UCUpperExtremity Stated Complaint: RIGHT HAND INJURY Time Seen by Provider: 01/18/19 15:03 Hx Obtained From: Patient Hx Last Menstrual Period: 7 mos. ?: No Onset/Duration: Sudden Onset, Still Present Severity Initially: Moderate Severity Currently: Moderate Pain Intensity: 8 Character Of Pain: Dull, Aching, Stiffness Aggravating Factor(s): Movement, Flexion, Extension Alleviating Factor(s): Rest Associated Signs And Symptoms: Positive: Swelling Related History: Dominant Hand Right - Risk Factors Compartment Syndrome Risk Factors: Pain - Allergies/Home Medications Allergies/Adverse Reactions: Allergies Allergy/AdvReac Type Severity Reaction Status Date / Time No Known Allergies Allergy Verified 01/18/19 15:05 PMH/Surg Hx/FS Hx/Imm Hx Previously Healthy: Yes Other History Of: Negative For: HIV, Hepatitis B, Hepatitis C, Anticoagulant Therapy - Surgical History Surgical History: Yes Surgery Procedure, Year, and Place: DENTAL EXTRACTIONS - Family History Known Family History: Positive: Cardiac Disease, Hypertension Negative: Diabetes - Social History Occupation: Employed Full-time Lives: With Family Alcohol Use: Rare Substance Use Type: None Smoking Status (MU): Former Smoker Type: Cigarettes Amount Used/How Often: 1/2 PPD Have You Smoked in the Last Year: Yes When Did the Patient Quit Smoking/Using Tobacco: 12/19/17 Household Exposure Type: Cigarettes - Immunization History Most Recent Influenza Vaccination: no Most Recent Tetanus Shot: UTD Vaccination Up to Date: Yes Review of Systems All Other Systems Reviewed And Are Negative: Yes Constitutional: Positive: Negative Skin: Positive: Other - dried scab on right 5th posterior mid finger Eyes: Positive: Negative ENT: Positive: Negative Respiratory: Positive: Negative Cardiovascular: Positive: Negative Gastrointestinal: Positive: Negative Genitourinary: Positive: Negative Motor: Positive: Decreased ROM - right hand Neurovascular: Positive: Negative Musculoskeletal: Positive: Arthralgia, Decreased ROM, Edema, Myalgia Neurological: Positive: Negative Psychological: Positive: Negative Is Patient Immunocompromised?: No Physical Exam Triage Information Reviewed: Yes Appearance: Well-Appearing Vital Signs: Initial Vital Signs Temp 98.8 F 01/18/19 15:01 Pulse 87 01/18/19 15:01 Resp 16 01/18/19 15:01 BP 107/54 01/18/19 15:01 Pulse Ox 99 01/18/19 15:01 Vital Signs Reviewed: Yes Eye Exam: Normal ENT Exam: Normal ENT: Positive: Hearing grossly normal Dental Exam: Normal Neck exam: Normal Respiratory: Positive: No respiratory distress Musculoskeletal: Positive: ROM Limited @ - right hand, 4th an d5th metacarpal phalangeal joint Neurological Exam: Normal Psychological Exam: Normal Skin Exam: Normal Diagnostics - Radiology No standard instances Radiology Interpretation Completed By: Radiologist - IMPRESSION: NO EVIDENCE FOR FRACTURE, IF THE PATIENT'S SYMPTOMS PERSIST RECOMMEND FOLLOW-UP IMAGING. Hand/Wrist Course/Dx - Differential Dx/Diagnosis Differential Diagnosis/HQI/PQRI: Contusion, Fracture, Sprain, Strain Provider Diagnosis: Injury of right hand Discharge - Sign-Out/Discharge Documenting (check all that apply): Patient Departure All imaging exams completed and their final reports reviewed: Yes - Discharge Plan Condition: Stable Disposition: HOME Patient Education Materials: Hand Sprain (ED), R.I.C.E. Treatment (ED), Safe Use of NSAIDs (ED) Referrals: [facility] [place] [facility] [place]] - If Needed David Lezama MD [Medical Doctor] - If Needed No Primary Care Phys,NOPCP [Primary Care Provider] - - Billing Disposition and Condition Condition: STABLE Disposition: Home
== END 2019-01-18 16:24 | disposition home or self-care (01) ==
LOC: UCCORT 14:35
DX: S69.91XA Unspecified injury of right wrist, hand and finger(s), initial encounter (principal); W10.9XXA Fall (on) (from) unspecified stairs and steps, initial encounter; Y93.01 Activity, walking, marching and hiking; Z87.891 Personal history of nicotine dependence
CPT/HCPCS: 99212; G0463

== ENCOUNTER 2019-06-15 19:39 | Emergency (ER) | payer BC, MEDICAID, OTHER ==
[2019-06-15 20:54] VITALS: BP 124/70
--- NOTE | 2019-06-15 21:01 | UC ---
Lower Extremity/Ankle HPI - HPI Summary HPI Summary: 28 yo female got out of bed and noted right ankle pain no recalled trauma pain x 3 days able to bear wt but with significan limp - History of Current Complaint Chief Complaint: UCLowerExtremity Stated Complaint: RT ANKLE COMPLAINT Time Seen by Provider: 06/15/19 20:45 Hx Obtained From: Patient Hx Last Menstrual Period: NEXPLANON Onset/Duration: Gradual Onset, Lasting Days Severity Initially: Mild Severity Currently: Moderate Pain Intensity: 7 Pain Scale Used: 0-10 Numeric Aggravating Factor(s): Standing, Ambulation Alleviating Factor(s): Rest Able to Bear Weight: Yes Feet (Multiple View): 1 - pain - Allergies/Home Medications Allergies/Adverse Reactions: Allergies Allergy/AdvReac Type Severity Reaction Status Date / Time No Known Allergies Allergy Verified 06/15/19 20:50 Home Medications: Home Medications Etonogestrel [Nexplanon] 1 implant ONCE 06/15/19 [History Confirmed 06/15/19] PMH/Surg Hx/FS Hx/Imm Hx Previously Healthy: Yes Other History Of: Negative For: HIV, Hepatitis B, Hepatitis C, Anticoagulant Therapy - Surgical History Surgical History: Yes Surgery Procedure, Year, and Place: DENTAL EXTRACTIONS. Gallbladder - Family History Known Family History: Positive: Cardiac Disease, Hypertension Negative: Diabetes - Social History Alcohol Use: Rare Substance Use Type: None Smoking Status (MU): Former Smoker Type: Cigarettes Amount Used/How Often: 1/2 PPD Have You Smoked in the Last Year: Yes When Did the Patient Quit Smoking/Using Tobacco: 12/19/17 Household Exposure Type: Cigarettes - Immunization History Most Recent Influenza Vaccination: no Most Recent Tetanus Shot: UTD Vaccination Up to Date: Yes Review of Systems All Other Systems Reviewed And Are Negative: Yes Constitutional: Positive: Negative Skin: Positive: Negative Eyes: Positive: Negative ENT: Positive: Negative Respiratory: Positive: Negative Cardiovascular: Positive: Negative Gastrointestinal: Positive: Negative Genitourinary: Positive: Negative Motor: Positive: Negative Neurovascular: Positive: Negative Musculoskeletal: Positive: Arthralgia - right ankle Neurological: Positive: Negative Psychological: Positive: Negative Physical Exam Triage Information Reviewed: Yes Appearance: Well-Appearing, No Pain Distress, Well-Nourished Vital Signs: Initial Vital Signs Temp 98.8 F 06/15/19 20:51 Pulse 92 06/15/19 20:51 Resp 16 06/15/19 20:51 BP 124/70 06/15/19 20:51 Pulse Ox 100 06/15/19 20:51 Vital Signs Reviewed: Yes Eyes: Positive: Conjunctiva Clear ENT: Positive: Hearing grossly normal. Negative: Nasal congestion, Nasal drainage, Trismus, Muffled voice, Hoarse voice Dental: Positive: Other: - edentulous Neck: Positive: Supple, Nontender, No Lymphadenopathy Respiratory: Positive: Lungs clear, Normal breath sounds, No respiratory distress, No accessory muscle use Cardiovascular: Positive: RRR, No Murmur Musculoskeletal: Positive: ROM Intact, No Edema Neurological: Positive: Alert Psychological Exam: Normal Skin Exam: Normal Diagnostics - Radiology No standard instances Radiology Interpretation Completed By: ED Physician Summary of Radiographic Findings: possible avulsion fracture of distal fibula Lower Extremity Course/Dx - Differential Dx/Diagnosis Provider Diagnosis: Closed avulsion fracture of distal end of right fibula, Tendonitis of ankle, right Discharge ED - Sign-Out/Discharge Documenting (check all that apply): Patient Departure All imaging exams completed and their final reports reviewed: No - Discharge Plan Condition: Stable Disposition: HOME Referrals: No Primary Care Phys,NOPCP [Medical Doctor] - - Billing Disposition and Condition Condition: STABLE Disposition: Home
--- NOTE | 2019-06-16 12:48 | UC ---
- Progress Note Progress Note: Reviewed Dr Pond's read of ankle xray, with soft tissue swelling but no fracture seen. Please call to advise patient that read was negative. Currently she is in a CAM walker and on crutches, and she should proceed as advised with referral to Dr. Lezama and use of crutches until pain and swelling decrease. Course/Dx - Diagnoses Provider Diagnoses: Closed avulsion fracture of distal end of right fibula, Tendonitis of ankle, right Discharge ED - Sign-Out/Discharge Documenting (check all that apply): Patient Departure All imaging exams completed and their final reports reviewed: Yes - Discharge Plan Condition: Stable Disposition: HOME Patient Education Materials: Tendinitis (ED), Avulsion Fracture (ED) Referrals: David Lezama MD [Medical Doctor] - Additional Instructions: The official xr results are pending Initially I thought you pain was due to tendonitis but when I looked at the XR it was suspicious for a tiny avulsion (chip) fracture of the fibula (outer part of ankle) rest ice elevation advil or aleve crutches until able to bear wt pain free - Billing Disposition and Condition Condition: STABLE Disposition: Home
== END 2019-06-15 21:52 | disposition home or self-care (01) ==
LOC: UCCORT 19:39
DX: S93.401A Sprain of unspecified ligament of right ankle, initial encounter (principal); X58.XXXA Exposure to other specified factors, initial encounter; Y92.9 Unspecified place or not applicable; M77.9 Enthesopathy, unspecified; Z87.891 Personal history of nicotine dependence
CPT/HCPCS: 99213; G0463

== ENCOUNTER 2019-10-28 16:24 | Emergency (ER) | payer OTHER ==
[2019-10-28 17:43] VITALS: BP 124/73
--- NOTE | 2019-10-28 17:47 | UC ---
Ear Complaint HPI - HPI Summary HPI Summary: 28-year-old female presents with complaints of nasal congestion, sore throat, and left ear pain for the past 10 days. States that he should fill take her left ear was reddened and swollen. No measured fever but complains of chills. Denies ear drainage, dysphagia, cough, chest pain, shortness of breath, abdominal pain, nausea, vomiting, or diarrhea. - History of Current Complaint Chief Complaint: UCRespiratory Stated Complaint: LT EAR COMPLAINT,CONGESTION Time Seen by Provider: 10/28/19 17:37 Hx Obtained From: Patient Hx Last Menstrual Period: nexplanon Pain Intensity: 7 - Allergies/Home Medications Allergies/Adverse Reactions: Allergies Allergy/AdvReac Type Severity Reaction Status Date / Time No Known Allergies Allergy Verified 10/28/19 17:38 PMH/Surg Hx/FS Hx/Imm Hx Previously Healthy: Yes - Denies significant PMH Other History Of: Negative For: HIV, Hepatitis B, Hepatitis C, Anticoagulant Therapy - Surgical History Surgical History: Yes Surgery Procedure, Year, and Place: DENTAL EXTRACTIONS. Gallbladder - Family History Known Family History: Positive: Cardiac Disease, Hypertension - Social History Occupation: Unemployed Lives: With Family Alcohol Use: Rare Substance Use Type: None Smoking Status (MU): Former Smoker Type: Cigarettes Amount Used/How Often: 1/2 PPD Have You Smoked in the Last Year: Yes When Did the Patient Quit Smoking/Using Tobacco: 12/19/17 Household Exposure Type: Cigarettes - Immunization History Most Recent Influenza Vaccination: no Most Recent Tetanus Shot: UTD Vaccination Up to Date: Yes Review of Systems All Other Systems Reviewed And Are Negative: Yes Constitutional: Positive: Chills, Fatigue. Negative: Fever Skin: Negative: Rash Eyes: Negative: Drainage, Eye Redness ENT: Positive: Sore Throat, Ear Ache, Nasal Discharge, Sinus Congestion. Negative: Sinus Pain/Tenderness Respiratory: Negative: Shortness Of Breath, Cough Cardiovascular: Negative: Palpitations, Chest Pain Gastrointestinal: Negative: Abdominal Pain, Vomiting, Diarrhea, Nausea Genitourinary: Positive: Negative Musculoskeletal: Positive: Negative Neurological: Positive: Negative Is Patient Immunocompromised?: No Physical Exam - Summary Physical Exam Summary: GENERAL APPEARANCE: Well developed, well nourished, alert and cooperative, and appears to be in no acute distress. EYES: Conjunctiva clear. No drainage. EARS: External auditory canals and tympanic membranes clear, hearing grossly intact. NOSE: Moderate nasal congestion. No nasal discharge. THROAT: Pharyngeal erythema. 2+ tonsils with exudate. Uvula midline. NECK: Neck supple, non-tender with mild anterior cervical lymphadenopathy. CARDIAC: Normal S1 and S2. No S3, S4 or murmurs. Rhythm is regular. There is no peripheral edema, cyanosis or pallor. Extremities are warm and well perfused. Capillary refill is less than 2 seconds. Peripheral pulses intact. LUNGS: Clear to auscultation without rales, rhonchi, wheezing or diminished breath sounds. ABDOMEN: Positive bowel sounds. Soft, nondistended, nontender. No guarding or rebound. No masses or hepatosplenomegally. MUSKULOSKELETAL: ROM intact to all extremities. No joint erythema or tenderness. Normal muscular development. Normal gait. SKIN: Skin normal color, texture and turgor with no lesions or eruptions. Triage Information Reviewed: Yes Vital Signs: Initial Vital Signs Temp 99.4 F 10/28/19 17:41 Pulse 95 10/28/19 17:41 Resp 22 10/28/19 17:41 BP 124/73 10/28/19 17:41 Pulse Ox 100 10/28/19 17:41 Vital Signs Reviewed: Yes Ear Complaint Course/Dx - Course Course Of Treatment: 28-year-old female presents with complaints of nasal congestion, sore throat, and left ear pain for the past 10 days. States that he should fill take her left ear was reddened and swollen. No measured fever but complains of chills. Denies ear drainage, dysphagia, cough, chest pain, shortness of breath, abdominal pain, nausea, vomiting, or diarrhea. Afebrile. Vital signs stable. Patient had moderate nasal congestion, normal TMs, pharyngeal erythema, 2+ tonsils with exudate, mild anterior cervical lymphadenopathy, clear bilateral breath sounds, and otherwise unremarkable exam. Discussed with the patient that considering the duration of her symptoms appearance of her throat and tonsils we'll go ahead and treat her for an upper respiratory infection with amoxicillin 500 mg twice a day 10 days as well as recommend symptomatic treatment. She is to follow-up with her primary care provider in 3-5 days if symptoms are not improving. Anticipatory guidance and warning symptoms are reviewed with the patient. Verbalizes understanding and agrees with plan of care. - Differential Dx/Diagnosis Differential Diagnosis/HQI/PQRI: Otitis Externa, Otitis Media, Perforated TM, URI, Other - Serous otitis Provider Diagnosis: URI (upper respiratory infection) Discharge ED - Sign-Out/Discharge Documenting (check all that apply): Patient Departure All imaging exams completed and their final reports reviewed: No Studies - Discharge Plan Condition: Stable Disposition: HOME Prescriptions: Amoxicillin 500 mg PO BID 10 Days #20 cap Patient Education Materials: Upper Respiratory Infection (ED) Referrals: Marie Goodman NP [Primary Care Provider] - Additional Instructions: Your history and exam are consistent with an upper respiratory infection. Considering the duration of your symptoms and the appearance of your throat we will treat you with an antibiotic for the infection. Start amoxicillin 500 mg 1 capsule twice a day for 10 days. Be sure to complete the entire course even if feeling better. Drink plenty of fluids to avoid dehydration especially if you are running any fever. Use an over the counter decongestant such as Sudafed for congestion. Take over the counter acetaminophen (Tylenol) or ibuprofen (Advil, Motrin) according to directions as needed for pain or fever. Use salt water gargles several times a day if you have a sore throat. You may also use Chloraseptic spray or Cepacol lonzenges according to directions which contain a numbing medication and can provide some temporary relief from your sore throat. Follow up with your primary care provider in 3-5 days if symptoms do not improve. Seek immediate medical attention in the emergency room if you have fever greater than 100.5 F despite taking acetaminophen or ibuprofen, have chest pain , difficulty breathing, are unable to swallow, or have any worsening of symptoms. - Billing Disposition and Condition Condition: STABLE Disposition: Home
== END 2019-10-28 18:15 | disposition home or self-care (01) ==
LOC: UCCORT 16:24
DX: J06.9 Acute upper respiratory infection, unspecified (principal); H92.02 Otalgia, left ear; Z87.891 Personal history of nicotine dependence
CPT/HCPCS: 99212; G0463